=== PATIENT | female | born 1965 | race Caucasian/White ===

== ENCOUNTER 2017-05-22 12:04 | Emergency (ER) | payer OTHER ==
[2017-05-22] MEDS: KETOROLAC 60 MG/2 ML VIAL (J1885) IM (14:13)
== END 2017-05-22 14:47 | disposition home or self-care (01) ==
LOC: M ED 12:04
DX: S39.002A Unspecified injury of muscle, fascia and tendon of lower back, initial encounter (principal); X58.XXXA Exposure to other specified factors, initial encounter; Y92.89 Other specified places as the place of occurrence of the external cause
CPT/HCPCS: J1885

== ENCOUNTER 2020-04-16 13:25 | Emergency (ER) | payer OTHER ==
[~2020-04-16] VITALS: Ht 152.4 cm; Wt 79.5 kg
[~2020-04-16 13:25] MED LIST: HYDR-3715 PO; ROBA500T PO
[2020-04-16] MEDS ORDERED: KETOROLAC 60MG 2ML VIAL IM ONE (15:00)
[2020-04-16 16:31] LABS: BASO # 0.1 10^3/uL (0.0-0.2); BASO % 0.7 % (0.0-1.0); EOS # 0.1 10^3/uL (0.0-0.5); EOS % 1.1 % (0.0-3.0); HEMATOCRIT 44.7 % (36.0-47.0); HEMOGLOBIN 14.5 g/dl (12.0-15.5); LYMPH # 2.1 10^3/uL (1.5-5.0); MEAN CORPUSCULAR HEMOGLOBIN 28.9 pg (27.0-33.0); MEAN CORPUSCULAR HGB CONC 32.4 g/dl (32.0-36.5); MONO # 0.5 10^3/uL (0.0-0.8); MONO % 7.2 % (0.0-5.0); NEUTROPHILS # 4.6 10^3/uL (1.5-8.5); NEUTROPHILS % 61.9 % (36.0-66.0); PLATELET COUNT, AUTOMATED 282 10^3/uL (150-450); RED BLOOD COUNT 5.02 10^6/uL (4.00-5.40); WHITE BLOOD COUNT 7.4 10^3/uL (4.0-10.0)
[2020-04-16 16:44] LABS: BLOOD UREA NITROGEN 24 MG/DL (7-18); CALCIUM LEVEL 8.7 MG/DL (8.5-10.1); CARBON DIOXIDE LEVEL 29 MEQ/L (21-32); CHLORIDE LEVEL 107 MEQ/L (98-107); CREATININE FOR GFR 0.94 MG/DL (0.55-1.30); GLOMERULAR FILTRATION RATE > 60.0 (>51); GLUCOSE, FASTING 119 MG/DL (70-100); POTASSIUM SERUM 4.7 MEQ/L (3.5-5.1); SODIUM LEVEL 141 MEQ/L (136-145)
[2020-04-16] MEDS ORDERED: CYCL5TAB PO (17:07)
[2020-04-16] MEDS ORDERED: KETO10TAB PO (17:08)
[2020-04-16 17:37] VITALS: BP 132/76
== END 2020-04-16 17:38 | disposition home or self-care (01) ==
LOC: M ED 13:25
DX: S39.012A Strain of muscle, fascia and tendon of lower back, initial encounter (principal); X58.XXXA Exposure to other specified factors, initial encounter; Y92.9 Unspecified place or not applicable; Y93.9 Activity, unspecified; Y99.9 Unspecified external cause status; M54.31 Sciatica, right side
CPT/HCPCS: 80048; 81001; 85025; 96372; 99283; J1885

== ENCOUNTER 2023-03-11 19:03 | Emergency (ER) | payer OTHER ==
[~2023-03-11] VITALS: Ht 154.9 cm; Wt 73.3 kg
[~2023-03-11 19:03] MED LIST changes: +CYCL5TAB PO; +KETO10TAB PO
[2023-03-12] MEDS ORDERED: BOOSTRIX VACCINE (TETANUS/DIPHTH/ACEL. PERTUSSIS) 0.5ML SYR IM ONE (01:40)
[2023-03-12] MEDS ORDERED: DERMABOND TOPICAL SKIN ADHESIVE TOP ONE (03:30)
[2023-03-12 03:45] VITALS: BP 138/82; TEMP 97.6; O2SAT 99
== END 2023-03-12 03:46 | disposition home or self-care (01) ==
LOC: M ED 19:03
DX: S61.211A Laceration without foreign body of left index finger without damage to nail, initial encounter (principal); W22.8XXA Striking against or struck by other objects, initial encounter; Y99.0 Civilian activity done for income or pay